=== PATIENT | female | born 1960 | race African-American/Black ===

== ENCOUNTER 2019-04-24 12:53 | Emergency (ER) | payer SELFPAY ==
[~2019-04-24] VITALS: Ht 167.6 cm; Wt 82.0 kg
[2019-04-24] MEDS ORDERED: IPRATROPIUM BROMIDE (0.02%) 0.5MG/2.5ML NEB HHN STA (15:12)
[2019-04-24] MEDS ORDERED: PREDNISONE 20MG TABLET PO STA (15:12)
[2019-04-24] MEDS ORDERED: ALBUTEROL (0.083%) 2.5MG/3ML NEB HHN STA (15:12)
[2019-04-24 15:37] LABS: BASOPHILS % 0.9 % (0.0-2.0); EOSINOPHILS % 3.1 % (0.0-5.0); HEMATOCRIT. 38.9 % (36.0-48.0); LYMPHOCYTES % 31.5 % (20.0-50.0); MEAN CORPUSCULAR HEMOGLOBIN 27.3 pg (28.0-32.0); MEAN CORPUSCULAR VOLUME 82.1 fL (81.0-99.0); MEAN PLATELET VOLUME 8.8 fl (7.4-10.4); MONOCYTES % 8.1 % (2.0-8.0); NEUTROPHILS % 56.4 % (40.0-76.0); PLATELET 209 x1000/uL (130-400); RED BLOOD CELL COUNT 4.74 mill/uL (4.2-5.4); RED CELL DISTRIBUTION WIDTH 13.5 % (11.6-14.6)
[2019-04-24 15:44] LABS: CHLORIDE 106 mEq/L (98-107)
[2019-04-24 16:31] VITALS: BP 159/70
== END 2019-04-24 16:36 | disposition home or self-care (01) ==
LOC: ER 14:13
DX: R06.03 Acute respiratory distress (principal); T59.811A Toxic effect of smoke, accidental (unintentional), initial encounter; J45.909 Unspecified asthma, uncomplicated; J70.5 Respiratory conditions due to smoke inhalation; Y92.89 Other specified places as the place of occurrence of the external cause
CPT/HCPCS: 36415; 71045; 80053; 85025; 93005; 94640; 99285; Z7610

== ENCOUNTER 2022-11-23 10:34 | Emergency (ER) | payer MEDICAID ==
[~2022-11-23] VITALS: Ht 165.1 cm; Wt 100.0 kg
[2022-11-23 11:16] VITALS: O2SAT 100
[2022-11-23] MEDS ORDERED: KETOROLAC 30MG/ML VIAL IM ONE (11:30)
[2022-11-23] MEDS ORDERED: CYCLOBENZAPRINE 10MG TABLET PO ONE (11:30)
[2022-11-23] MEDS ORDERED: CYCL10TA21 MT (14:55)
[2022-11-23] MEDS ORDERED: CYCLOBENZAPRINE 10MG TABLET PO NR (15:04)
[2022-11-23] MEDS ORDERED: KETOROLAC 30MG/ML VIAL IM NR (15:04)
[2022-11-23 16:44] VITALS: BP 116/79; PULSE 74; RESP 19; TEMP 98.3
== END 2022-11-23 16:46 | disposition home or self-care (01) ==
LOC: ER 10:34
DX: M79.641 Pain in right hand (principal); J45.909 Unspecified asthma, uncomplicated; Z88.5 Allergy status to narcotic agent; Z90.49 Acquired absence of other specified parts of digestive tract; Z98.890 Other specified postprocedural states
CPT/HCPCS: 99283; 29125; 96372; J1885

== ENCOUNTER 2025-02-02 15:30 | Emergency (ER) | payer MEDICAID ==
[~2025-02-02] VITALS: Ht 157.5 cm; Wt 81.0 kg
[~2025-02-02 15:30] MED LIST: CYCL10TA21 MT
[2025-02-02 15:37] VITALS: O2SAT 98
[2025-02-02 20:24] LABS: INFLUENZA TYPE A Presumptive Negative (Pres. Neg.)
[2025-02-02 20:25] LABS: INFLUENZA TYPE B Presumptive Negative (Pres. Neg.)
[2025-02-02 20:26] LABS: RESPIRATORY SYNCYTIAL VIRUS Not Detected (Not Detectd)
[2025-02-02 22:40] VITALS: BP 135/69; PULSE 82; RESP 17; TEMP 38; O2SAT 98
== END 2025-02-02 22:42 | disposition home or self-care (01) ==
LOC: ER 15:30
DX: B34.9 Viral infection, unspecified (principal); J45.909 Unspecified asthma, uncomplicated; Z88.5 Allergy status to narcotic agent; Z90.49 Acquired absence of other specified parts of digestive tract; Z20.822 Contact with and (suspected) exposure to COVID-19
CPT/HCPCS: 71045; 87070; 87420; 87426; 87430; 87804; 99284